=== PATIENT | male | born 1975 | race Caucasian/White ===

== ENCOUNTER 2021-11-02 01:06 | Emergency (ER) | payer SELFPAY ==
[2021-11-02 01:36] LABS: BASOPHIL 0.3 % (0-2); EOSINOPHIL 1.8 % (0-5); HCT 41.7 % (42.0-52.0); HGB 13.6 g/dl (13.2-18.0); LYMPHOCYTE 42.1 % (15-48); MCHC 32.6 g/dL (32.0-36.0); MCV 82.7 fL (78.0-100.0); MONOCYTE 6.1 % (0-12); MPV 11.5 fL (6.0-9.5); NEUTROPHIL 49.4 % (41-80); NRBC 0; PLT 219 K/uL (150-400); RBC 5.04 M/uL (4.70-6.00); RDW 12.7 % (11.5-14.0); WBC 11.6 K/uL (4.0-10.5)
[2021-11-02 01:41] LABS: PROTHROMBIN TIME 12.6 SECONDS (11.8-13.4); PTT 27.1 SECONDS (24.4-34.7)
[2021-11-02 02:04] LABS: ALBUMIN 3.8 g/dL (3.4-5.0); BILIRUBIN - TOTAL 0.1 mg/dL (0.2-1.0); CREATININE 0.83 mg/dL (0.67-1.17); POTASSIUM 4.2 mmol/L (3.5-5.1); TOTAL PROTEIN 6.8 g/dL (6.4-8.2)
[2021-11-02 02:22] LABS: CORONAVIRUS 2019 SARS-COV-2 NEGATIVE (NEGATIVE); INFLUENZA A NAA NEGATIVE (NEGATIVE)
== END 2021-11-02 02:50 | disposition home or self-care (01) ==
LOC: FER 01:06
PROVIDERS: Internal Medicine
DX: R07.89 Other chest pain (principal); F11.13 Opioid abuse with withdrawal; F17.210 Nicotine dependence, cigarettes, uncomplicated; Z20.822 Contact with and (suspected) exposure to COVID-19
CPT/HCPCS: 36415; 80053; 83690; 83735; 84145; 84484; 85025; 85610; 85730; 93005; U0002